=== PATIENT | female | born 1990 | race Caucasian/White ===

== ENCOUNTER 2021-12-24 23:18 | Outpatient (CLI) | payer OTHER ==
[~2021-12-24] VITALS: Ht 157.5 cm; Wt 71.8 kg
[2021-12-24 23:30] VITALS: BP 108/73; PULSE 82; TEMP 98
--- NOTE | 2021-12-24 23:35 | NUR ---
2335 G1L0 29.2 WEEK GEST TO LR4 WITH C/O UPPER ABD PAIN AND RUQ PAIN. STATES STARTED AROUND 2200 TONIGHT AND WAS VERY INTENSE AND SHARP RATING IT A 8/10. WAS NOT EATING BEFORE PAIN HAPPENED AND HAS NEVER HAD THAT PAIN BEFORE. NO NAUSEA, VOMITING OR DIARHEA. NO C/O CONTRACTIONS. NOW RATES PAIN 4/10 AND STATES IT IS MORE LIKE AN OCC SHARP PAIN IN UPPER ABD AND RUQ. EFM. BABY VERY ACTIVE. OCC, IRREGULAR CONTACTION NOTED BUT NOT FELT BY PT. ADM ASSESSMENT DONE.
[2021-12-24] MEDS ORDERED: PRENATAL TABLET PO (23:39)
[2021-12-24] MEDS ORDERED: ASPIRIN 81M81 MG/TA2 PO (23:40)
--- NOTE | 2021-12-25 00:15 | NUR ---
0015 DR EWING NOTIFIED OF PTS COMPLAINT OF UPPER ABD PAIN, OCC CONTRACTION AND RELIEF OF INTENSE PAIN AT THIS TIME. INSTRUCTED TO DO A SVE AND THEN PT MAY GO HOME 0020 SVE CLOSED AND VERY POSTERIOR CERVIX. ADM INSTRUCTIONS GIVEN 0025 HOME WITH INSTRUCTIONS.
== END 2021-12-25 00:25 | disposition home or self-care (01) ==
LOC: LDRO 23:18
DX: O26.892 Other specified pregnancy related conditions, second trimester (principal); R10.10 Upper abdominal pain, unspecified; Z3A.29 29 weeks gestation of pregnancy